=== PATIENT | male | born 1970 | race Caucasian/White ===

== ENCOUNTER 2017-09-02 20:04 | Inpatient (IN) | payer OTHER ==
[~2017-09-02] VITALS: Ht 177.8 cm; Wt 74.8 kg
[~2017-09-02 20:04] MED LIST: AUGMENTIN 875875 MG PO; BLM PO; MEDROL DOSEPAK1 PAC PO; PERCOCET 325 MG1 TA2 PO
[2017-09-02 20:56] LABS: ABSOLUTE BASOPHIL COUNT 0.1 /CUMM (0.0-0.2); ABSOLUTE EOSINOPHIL COUNT 0 /CUMM (0.0-0.7); ABSOLUTE GRANULOCYTE CT 13.6 /CUMM (1.4-6.5); ABSOLUTE LYMPH COUNT 1.4 /CUMM (1.2-3.4); ABSOLUTE MONOCYTE COUNT 2.4 /CUMM (0.10-0.60); BASOPHIL % 0.5 % (0.0-2.0); EOSINOPHIL % 0 % (0-5); GRANULOCYTE % 77.8 % (42.2-75.2); HEMATOCRIT 44.5 % (42-52); MEAN CORPUSCULAR HGB 31.8 PG (27.0-31.0); MEAN CORPUSCULAR HGB CONC 33.9 G/DL (33.0-37.0); MEAN CORPUSCULAR VOLUME 93.8 FL (80.0-94.0); MEAN PLATELET VOLUME 7.7 FL (7.4-10.4); PLATELET COUNT 342 /CUMM (130-400); RBC DISTRIBUTION WIDTH 13.4 % (11.5-14.5); RED BLOOD CELL CT 4.74 /CUMM (4.70-6.10); WHITE BLOOD CELL COUNT 17.5 /CUMM (4.8-10.8)
--- NOTE | 2017-09-02 21:52 | ED GI/GU/ABDOMINAL COMPLAINT ---
History of Present Illness General Chief Complaint: Abdominal Pain/Flank Pain Stated Complaint: ABD PAIN X 4 DAYS PER PT Source: patient, family, old records Exam Limitations: no limitations Vital Signs & Intake/Output Vital Signs & Intake/Output Vital Signs Date Time Temp Pulse Resp B/P B/P Pulse O2 O2 Flow FiO2 Mean Ox Delivery Rate 09/02 2010 98.4 90 18 152/88 99 Room Air ED Intake and Output 09/03 0000 09/02 1200 Intake Total Output Total Balance Patient 160 lb Weight Allergies Coded Allergies: NO KNOWN ALLERGIES (09/22/14) Reconcile Medications Amoxicillin/Clavulanate Potass (Amox-Clav 875-125 MG Tablet) 875 MG-125 MG TABLET 1 TAB PO BID INFECTION LIDO/MAAL/CARLOS A (Magic Mouthwash) (Lido-Visc2% 30ML/[id number],MAALOX 120ml) 270 ML JEREL 10 ML PO TID PRN Mouth Pain Methylprednisolone. (Medrol) 4 MG TAB.DS.PK 1 PAC PO AD INFLAMMATION OXYCODONE HCL/ACETAMINOPHEN (Percocet 5-325 MG Tablet) 325 MG/5 MG TAB 1-2 TAB PO Q4P PRN PAIN SCALE 1-4 Triage Note: 47M HX DIVERTICULITIS WITH EXCRUTIATING PAIN X4 HOURS. REPORTS PAIN IS SEVERE TO BILAT LOWER QUADRANTS. DENIES BACK PAIN, DENIES DYSURIA OR HEMATURIA. AFEBRILE. N/V/D ON SATURDAY BUT NONE TODAY. DENIES FEVERS/CHILLS. POOR PO INTAKE. HX APPY. PAIN 7/10 AT BEST AND 9/10 AT WORST. IV EST AND LABS DRAWN AND SENT FROM [facility] (BLUE SSTX2 LAV LONG PINK) AND IV EST FOR CT. MEDICATED WITH MORPHINE PER [facility] Triage Nurses Notes Reviewed? yes HPI: On Saturday evening patient began to feel slight discomfort in his left lower quadrant. Patient thought he was getting the GI probe. By night he began having nausea vomiting and diarrhea. Saturday he still felt slightly nauseous but there was no more vomiting or diarrhea however the crampy pain has steadily increased throughout the weekend. Currently the pain is radiating to his right lower quadrant as well. The pain has been increasing up to 9 out of 10. Patient does have a history of diverticulitis with microperforation. Patient denies any fevers or chills. Patient comes in for evaluation. There are no aggravating or mitigating factors. Past History Travel History Traveled to [place] past 21 day No Medical History Any Pertinent Medical History? see below for history Neurological: NONE EENT: NONE Cardiovascular: NONE Respiratory: NONE Gastrointestinal: diverticulitis, OBSTRUCTION W/PERF. 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 No Review of Systems Review of Systems Constitutional: Reports: no symptoms. EENTM: Reports: no symptoms. Respiratory: Reports: no symptoms. Cardiovascular: Reports: no symptoms. GI: Reports: see HPI, abdominal pain, diarrhea, nausea, vomiting. Genitourinary: Reports: no symptoms. Musculoskeletal: Reports: no symptoms. Skin: Reports: no symptoms. Neurological/Psychological: Reports: no symptoms. Hematologic/Endocrine: Reports: no symptoms. Immunologic/Allergic: Reports: no symptoms. All Other Systems: Reviewed and Negative Physical Exam Physical Exam General Appearance: well developed/nourished, alert, awake, anxious, moderate distress Head: atraumatic, normal appearance Eyes: Bilateral: PERRL, EOMI. Ears, Nose, Throat, Mouth: hearing grossly normal, DRY MUCOSA Neck: normal inspection, supple, full range of motion Respiratory: normal breath sounds, chest non-tender, no respiratory distress, lungs clear Cardiovascular: regular rate/rhythm, normal peripheral pulses Gastrointestinal: normal bowel sounds, soft, guarding, rebound, tenderness (LLQ) Back: normal inspection, normal range of motion Extremities: normal range of motion Neurologic/Psych: no motor/sensory deficits, awake, alert, oriented x 3, normal mood/affect Skin: intact, normal color, warm/dry Core Measures ACS in differential dx? No Sepsis Present: No Sepsis Focused Exam Completed? No Progress Differential Diagnosis: bowel obstruction, diverticulitis, ischemic bowel, inflamm bowel dis, pancreatitis, peptic ulcer, PUD/GERD Plan of Care: Orders Procedure Date/time Status ED Holding Orders 09/03 B Active Code Status 09/03 0101 Active Admit to inpatient 09/03 0100 Active LIPASE 09/02 2013 Complete LACTIC ACID 09/02 2013 Complete COMPREHENSIVE METABOLIC PANEL 09/02 2013 Complete CBC WITHOUT DIFFERENTIAL 09/02 2013 Complete Laboratory Tests 09/02/17 2314: Lactic Acid Cancelled 09/02/17 2022: Anion Gap 21 H, Estimated GFR > 60, BUN/Creatinine Ratio 21.0, Glucose 97, Lactic Acid 1.2, Calcium 10.1, Total Bilirubin 1.3, AST 32, ALT 60, Alkaline Phosphatase 99, Total Protein 8.1, Albumin 4.9, Globulin 3.2, Albumin/Globulin Ratio 1.5, Lipase 88, CBC w Diff NO MAN DIFF REQ, RBC 4.74, MCV 93.8, MCH 31.8 H, MCHC 33.9, RDW 13.4, MPV 7.7, Gran % 77.8 H, Lymphocytes % 8.2 L, Monocytes % 13.5 H, Eosinophils % 0, Basophils % 0.5, Absolute Granulocytes 13.6 H, Absolute Lymphocytes 1.4, Absolute Monocytes 2.4 H, Absolute Eosinophils 0, Absolute Basophils 0.1 Diagnostic Imaging: Viewed by Me: CT Scan. Discussed w/RAD: CT Scan. Radiology Impression: PATIENT: EDMOND VILLAR PRESENT AGE: 47 PATIENT ACCOUNT NO: [id number] : 71 LOCATION: [facility] ORDERING PHYSICIAN: Estella PALOMARES SERVICE DATE: 09/02/17 EXAM TYPE: CAT - CT ABD & PELVIS W IV CONTRAST EXAMINATION: CT ABDOMEN AND PELVIS WITH CONTRAST CLINICAL INFORMATION: Lower abdominal pain. COMPARISON: 11/19/2014 TECHNIQUE: Multidetector volumetric imaging was performed of the abdomen and pelvis following IV administration of 95 mL of Optiray 320 intravenous contrast. Sagittal and coronal reformatted images were obtained on the technologist's workstation. DLP: 290 mGy-cm FINDINGS: LUNG BASES: The visualized lung bases are unremarkable. LIVER, GALLBLADDER, AND BILIARY TREE: The liver is normal in size, shape, and attenuation. No focal hepatic lesion or biliary ductal dilatation is present. The gallbladder is unremarkable with no evidence of radiopaque gallstones, gallbladder wall thickening, or obvious pericholecystic inflammatory changes. PANCREAS: Unremarkable. SPLEEN: Unremarkable. ADRENAL GLANDS: Unremarkable. KIDNEYS AND URETERS: The kidneys are normal in size, shape, and attenuation. No hydronephrosis, hydroureter, or calculi seen. No perinephric stranding. BLADDER: Unremarkable. GASTROINTESTINAL TRACT: Within the central aspect of the lower abdomen there appears to be an extraluminal collection/ abscess with air-fluid level measuring 3.8 x 4.4 x 4.6 cm. This involves the posterior wall of a dilated and thick-walled small bowel loop. This loop of small bowel courses posteroinferiorly, where the collection erodes into the anterior wall, potentially an enteroenteric fistula. In addition, along the left lateral margin the junction of the sigmoid and descending colon is tethered, contiguous with the collection, which also appears to be eroding the wall of the colon on axial image 54 and an enterocolic fistula cannot be excluded. Potentially, this is a diverticular abscess from the sigmoid, eroding into adjacent loops of small bowel. There are dilated loops of fluid and air-filled small bowel in the mid-abdomen. There is a small amount of free fluid in the pelvis. ABDOMINAL WALL: No significant hernia is appreciated. LYMPH NODES: Normal. VASCULAR: Unremarkable. PELVIC VISCERA: The uterus is absent. OSSEOUS STRUCTURES: Unremarkable. IMPRESSION: There is a 3.8 x 4.4 x 4.6 cm abscess in the central lower abdomen involving 2 contiguous portions of a loop of small bowel which are markedly thick-walled. This collection abuts and may erode the adjacent sigmoid colon. Complication of a sigmoid diverticulitis/diverticular abscess is the suspected etiology with possible enterocolic and enteroenteric fistulous communications. Portions of proximal small bowel loops within the mid and upper abdomen are dilated. DICTATED BY: Jorge Luis Galdamez MD DATE/TIME DICTATED:09/02/172221 GUITAR INSTRUCTOR:MATA DATE/TIME TRANSCRIBED:2221 CONFIDENTIAL, DO NOT COPY WITHOUT APPROPRIATE AUTHORIZATION. < Electronically signed in Other Vendor System> SIGNED BY: Jorge Luis Galdamez MD 09/02/17 4630 Initial ED EKG: none Departure Departure Disposition: STILL A PATIENT Condition: Fair Clinical Impression Primary Impression: Diverticular disease of intestine with perforation and abscess Referrals: Peña Bartholomew MD (PCP/Family) Departure Forms: Customer Survey General Discharge Information Admission Note Spoke With: Shan Miles DO Documentation of Exam: Documentation of any treatments & extenuating circumstances including Concerns Regarding Discharge (functional status, medication knowledge or non-compliance, living conditions, etc.) that warrant an admission rather than observation: [NPO , IV FLUIDS, IV ABX, IR DRAINAGE, MAY REQUIRE SURGICAL INTERVENTION]
--- NOTE | 2017-09-02 22:47 | CT SCAN REPORT ---
EXAMINATION: CT ABDOMEN AND PELVIS WITH CONTRAST CLINICAL INFORMATION: Lower abdominal pain. COMPARISON: 11/19/2014 TECHNIQUE: Multidetector volumetric imaging was performed of the abdomen and pelvis following IV administration of 95 mL of Optiray 320 intravenous contrast. Sagittal and coronal reformatted images were obtained on the technologist's workstation. DLP: 290 mGy-cm FINDINGS: LUNG BASES: The visualized lung bases are unremarkable. LIVER, GALLBLADDER, AND BILIARY TREE: The liver is normal in size, shape, and attenuation. No focal hepatic lesion or biliary ductal dilatation is present. The gallbladder is unremarkable with no evidence of radiopaque gallstones, gallbladder wall thickening, or obvious pericholecystic inflammatory changes. PANCREAS: Unremarkable. SPLEEN: Unremarkable. ADRENAL GLANDS: Unremarkable. KIDNEYS AND URETERS: The kidneys are normal in size, shape, and attenuation. No hydronephrosis, hydroureter, or calculi seen. No perinephric stranding. BLADDER: Unremarkable. GASTROINTESTINAL TRACT: Within the central aspect of the lower abdomen there appears to be an extraluminal collection/abscess with air-fluid level measuring 3.8 x 4.4 x 4.6 cm. This involves the posterior wall of a dilated and thick-walled small bowel loop. This loop of small bowel courses posteroinferiorly, where the collection erodes into the anterior wall, potentially an enteroenteric fistula. In addition, along the left lateral margin the junction of the sigmoid and descending colon is tethered, contiguous with the collection, which also appears to be eroding the wall of the colon on axial image 54 and an enterocolic fistula cannot be excluded. Potentially, this is a diverticular abscess from the sigmoid, eroding into adjacent loops of small bowel. There are dilated loops of fluid and air-filled small bowel in the mid-abdomen. There is a small amount of free fluid in the pelvis. ABDOMINAL WALL: No significant hernia is appreciated. LYMPH NODES: Normal. VASCULAR: Unremarkable. PELVIC VISCERA: The uterus is absent. OSSEOUS STRUCTURES: Unremarkable. IMPRESSION: There is a 3.8 x 4.4 x 4.6 cm abscess in the central lower abdomen involving 2 contiguous portions of a loop of small bowel which are markedly thick-walled. This collection abuts and may erode the adjacent sigmoid colon. Complication of a sigmoid diverticulitis/diverticular abscess is the suspected etiology with possible enterocolic and enteroenteric fistulous communications. Portions of proximal small bowel loops within the mid and upper abdomen are dilated.
--- NOTE | 2017-09-02 23:26 | History & Physical Pre-Op ---
Starr Argueta 09/02/172: General Information and HPI History of Present Illness: 47yoM presents to ED c/o abdominal pain x5 days, worsening. +n/v 3 days ago, now resolved. no fevers/chills. +flatus. no cp/sob. No appetite. Hx sigmoid divertic abscess 3 yrs ago, resolved with antibiotics. Denies other medical problems. Last colonoscopy 4 years ago, normal per pt. 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 History of MRSA: No History of VRE: No History of CDIFF: No Surgical History Pertinent Surgical History: appendectomy (open, 9yrs old) Past Family/Social History Psychosocial History Services at Home None ETOH Use: occasional use Illicit Drug Use: denies illicit drug use Exam & Diagnostic Data Last 24 Hrs of Vital Signs/I&O Vital Signs Date Time Temp Pulse Resp B/P B/P Pulse O2 O2 Flow FiO2 Mean Ox Delivery Rate 09/02 2010 98.4 90 18 152/88 99 Room Air Physical Exam: gen- nad card-s1s2 rrr pulm- ctab abd- softly distended, ttp llq/suprapubic, no r/g ext- calves soft nt Last 24 Hrs of Labs/Keith: Laboratory Tests 09/02/174: Lactic Acid Cancelled 09/02/172021: Anion Gap 21 H, Estimated GFR > 60, BUN/Creatinine Ratio 21.0, Glucose 97, Lactic Acid 1.2, Calcium 10.1, Total Bilirubin 1.3, AST 32, ALT 60, Alkaline Phosphatase 99, Total Protein 8.1, Albumin 4.9, Globulin 3.2, Albumin/Globulin Ratio 1.5, Lipase 88, CBC w Diff NO MAN DIFF REQ, RBC 4.74, MCV 93.8, MCH 31.8 H, MCHC 33.9, RDW 13.4, MPV 7.7, Gran % 77.8 H, Lymphocytes % 8.2 L, Monocytes % 13.5 H, Eosinophils % 0, Basophils % 0.5, Absolute Granulocytes 13.6 H, Absolute Lymphocytes 1.4, Absolute Monocytes 2.4 H, Absolute Eosinophils 0, Absolute Basophils 0.1 Diagnostic Data Other Results SERVICE DATE: 09/02/17 EXAM TYPE: CAT - CT ABD & PELVIS W IV CONTRAST EXAMINATION: CT ABDOMEN AND PELVIS WITH CONTRAST CLINICAL INFORMATION: Lower abdominal pain. COMPARISON: 11/19/2014 TECHNIQUE: Multidetector volumetric imaging was performed of the abdomen and pelvis following IV administration of 95 mL of Optiray 320 intravenous contrast. Sagittal and coronal reformatted images were obtained on the technologist's workstation. DLP: 290 mGy-cm FINDINGS: LUNG BASES: The visualized lung bases are unremarkable. LIVER, GALLBLADDER, AND BILIARY TREE: The liver is normal in size, shape, and attenuation. No focal hepatic lesion or biliary ductal dilatation is present. The gallbladder is unremarkable with no evidence of radiopaque gallstones, gallbladder wall thickening, or obvious pericholecystic inflammatory changes. PANCREAS: Unremarkable. SPLEEN: Unremarkable. ADRENAL GLANDS: Unremarkable. KIDNEYS AND URETERS: The kidneys are normal in size, shape, and attenuation. No hydronephrosis, hydroureter, or calculi seen. No perinephric stranding. BLADDER: Unremarkable. GASTROINTESTINAL TRACT: Within the central aspect of the lower abdomen there appears to be an extraluminal collection/abscess with air-fluid level measuring 3.8 x 4.4 x 4.6 cm. This involves the posterior wall of a dilated and thick-walled small bowel loop. This loop of small bowel courses posteroinferiorly, where the collection erodes into the anterior wall, potentially an enteroenteric fistula. In addition, along the left lateral margin the junction of the sigmoid and descending colon is tethered, contiguous with the collection, which also appears to be eroding the wall of the colon on axial image 54 and an enterocolic fistula cannot be excluded. Potentially, this is a diverticular abscess from the sigmoid, eroding into adjacent loops of small bowel. There are dilated loops of fluid and air-filled small bowel in the mid-abdomen. There is a small amount of free fluid in the pelvis. ABDOMINAL WALL: No significant hernia is appreciated. LYMPH NODES: Normal. VASCULAR: Unremarkable. PELVIC VISCERA: The uterus is absent. OSSEOUS STRUCTURES: Unremarkable. IMPRESSION: There is a 3.8 x 4.4 x 4.6 cm abscess in the central lower abdomen involving 2 contiguous portions of a loop of small bowel which are markedly thick-walled. This collection abuts and may erode the adjacent sigmoid colon. Complication of a sigmoid diverticulitis/diverticular abscess is the suspected etiology with possible enterocolic and enteroenteric fistulous communications. Portions of proximal small bowel loops within the mid and upper abdomen are dilated. 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 P- NPO IVF cefepime/flagyl am labs will consult IR for possible perc drainage in am alps, order hep sq after ir procedure Pt seen with Dr. Miles As Ranked By This Provider Problem List: 1. Diverticular disease of intestine with perforation and abscess Rosalino BARAJAS,Jens Nolen 09/03/17 1509: Attending MD Review Statement Attending Statement Attending MD Statement: examined this patient, reviewed images Attending Assessment/Plan: 47yo male known to me with recurrent sigmoid diverticular abscess with partial sbo. plan medical management with bowel rest and IV abx.
--- NOTE | 2017-09-03 01:33 | Admission Core Measures ---
Acute Coronary Syndrome (CM) ACS Core Measures Acute Coronary Syndrome Diagnosis No Congestive Heart Failure (NEW) CHF Core Measures Congestive Heart Failure Diagnosis No Cerebrovascular Accident (NEW) CVA Core Measures CVA/TIA Diagnosis No Venous Thromboembolism VTE Core [place] (View Protocol) VTE Risk Factors Acute Medical Illness No Mechanical VTE Prophylaxis d/t N/A MechProphylax Ordered No VTE Pharm Prophylaxis d/t Surgical Contraindication Problem List As ranked by this Provider includes Assessment & Plan 1. Diverticular disease of intestine with perforation and abscess HOME MEDS Home Med List No Known Home Medications
[2017-09-03 03:13] VITALS: BP 140/82
[2017-09-03 08:27] LABS: ABSOLUTE EOSINOPHIL COUNT 0 /CUMM (0.0-0.7); ABSOLUTE GRANULOCYTE CT 12.3 /CUMM (1.4-6.5); RBC DISTRIBUTION WIDTH 13.1 % (11.5-14.5); WHITE BLOOD CELL COUNT 16.5 /CUMM (4.8-10.8)
[2017-09-03 08:55] LABS: ABSOLUTE BASOPHIL COUNT 0 /CUMM (0.0-0.2); ABSOLUTE LYMPH COUNT 1.7 /CUMM (1.2-3.4); ABSOLUTE MONOCYTE COUNT 2.5 /CUMM (0.10-0.60); BASOPHIL % 0.2 % (0.0-2.0); EOSINOPHIL % 0.2 % (0-5); GRANULOCYTE % 74.5 % (42.2-75.2); MEAN CORPUSCULAR VOLUME 94.2 FL (80.0-94.0); PLATELET COUNT 247 /CUMM (130-400)
[2017-09-03 08:58] LABS: HEMATOCRIT 37.7 % (42-52)
[2017-09-03 09:22] VITALS: BP 130/72
--- NOTE | 2017-09-03 10:38 | PN- General Surgery ---
See Addendum Subjective Subjective: Patient reports abdominal pain in his lower quadrants, which waxes and wanes in natures, denies f/c/n/v. Offers no other complaints. Objective Vital Signs and I&Os Vital Signs Date Time Temp Pulse Resp B/P B/P Pulse O2 O2 Flow FiO2 Mean Ox Delivery Rate 09/03 921 99.2 92 18 130/72 98 Room Air 09/03 0313 99.1 108 20 140/82 98 Room Air 09/03 0203 98.0 96 20 160/72 98 Room Air 09/03 0000 98 Room Air 09/02 2010 98.4 90 18 152/88 99 Room Air Intake & Output 09/03 1600 09/03 0800 09/03 0000 09/02 1600 09/02 0800 09/02 0000 Intake Total 750 Output Total Balance 750 Intake, IV 750 Patient 165 lb 160 lb Weight Weight Reported by Patient Measurement Method Physical Exam: Gen - resting comfortably awake an alert in NAD Cardiac - S1S2 noted Lungs - CTAB Abd - softly distended, faint bs, mildly tender to palpation in lower quadrants and suprapubic region, no signs of peritonitis Ext - no edema or calf tenderness Current Medications: Current Medications Sig/Jhonatan Start time Last Medication Dose Route Stop Time Status Admin Ampicillin Sodium/ 0 .STK-MED ONE 09/02 2319 DC Sulbactam Sodium .ROUTE Ampicillin Sodium/ 3,000 MG ONCE ONE 09/02 2300 DC 09/02 Sulbactam Sodium IV 09/02 2329 2318 Sodium Chloride 100 ML Ceftriaxone Sodium 1,000 MG Q24H 09/04 0130 DC IV Ceftriaxone Sodium 2,000 MG Q24H 09/04 0130 AC IV Ceftriaxone Sodium 1,000 MG ONCE ONE 09/03 1015 DC IV 09/03 1016 Ceftriaxone Sodium 0 .STK-MED ONE 09/03 0210 DC .ROUTE Ceftriaxone Sodium 0 .STK-MED ONE 09/03 0150 DC .ROUTE Ceftriaxone Sodium 1,000 MG DAILY 09/03 0130 DC 09/03 IV 0140 Dextrose/Sodium 1,000 ML .Q8H 09/03 0130 AC 09/03 Chloride IV 0219 Diphenhydramine HCl 25 MG ONCE ONE 09/03 0300 DC 09/03 IV 09/03 0301 0307 Heparin Sodium 5,000 UNIT Q8 09/03 1400 UNVr (Porcine) SC Metronidazole 500 MG Q8H 09/03 1000 AC 09/03 N/A 1 UNIT IV 0900 Metronidazole 500 MG IQ8 09/03 0145 DC 09/03 N/A 1 UNIT IV 0208 Morphine Sulfate 0 .STK-MED ONE 09/03 0216 DC .ROUTE Morphine Sulfate 2 MG Q3P PRN 09/03 0145 AC 09/03 IV 0901 Morphine Sulfate 4 MG Q3P PRN 09/03 0145 AC IV Morphine Sulfate 0 .STK-MED ONE 09/03 0003 DC .ROUTE Morphine Sulfate 4 MG ONCE ONE 09/02 2345 DC 09/02 IV 09/02 234 2359 Morphine Sulfate 0 .STK-MED ONE 09/02 2208 DC .ROUTE Morphine Sulfate 4 MG ONCE ONE 09/02 2199 DC 09/02 IV 09/02 2200 221 Morphine Sulfate 0 .STK-MED ONE 09/02 2030 DC .ROUTE Morphine Sulfate 4 MG ONCE ONE 09/02 2030 DC 09/02 IV 09/02 Ondansetron HCl 4 MG Q6P PRN 09/03 0130 AC IV Pantoprazole Sodium 40 MG DAILY 09/03 1113 AC IV Sodium Chloride 1,000 ML BOLUS ONE 09/02 2300 DC 09/02 IV 09/02 235 2318 Sodium Chloride 1,000 ML BOLUS ONE 09/02 2199 DC 09/02 IV 09/02 225 2214 Results Last 48 Hours of Labs: Laboratory Tests 09/03 09/03 0633 0130 Chemistry Sodium (137 - 145 mmol/L) 138 Potassium (3.5 - 5.1 mmol/L) 3.6 Chloride (98 - 107 mmol/L) 106 Carbon Dioxide (22 - 30 mmol/L) 19 L Anion Gap (5 - 16) 13 BUN (9 - 20 mg/dL) 15 Creatinine (0.7 - 1.2 mg/dL) 0.7 Estimated GFR (>60 ml/min) > 60 BUN/Creatinine Ratio (7 - 25 %) 21.4 Hematology CBC w Diff MAN DIFF ORDERED WBC (4.8 - 10.8 /CUMM) 16.5 H RBC (4.70 - 6.10 /CUMM) 4.00 L Hgb (14.0 - 18.0 G/DL) 12.8 L Hct (42 - 52 %) 37.7 L MCV (80.0 - 94.0 FL) 94.2 H MCH (27.0 - 31.0 PG) 32.0 H MCHC (33.0 - 37.0 G/DL) 34.0 RDW (11.5 - 14.5 %) 13.1 Plt Count (130 - 400 /CUMM) 247 MPV (7.4 - 10.4 FL) 8.0 Gran % (42.2 - 75.2 %) 74.5 Lymphocytes % (20.5 - 51.1 %) 10.2 L Monocytes % (1.7 - 9.3 %) 14.9 H Eosinophils % (0 - 5 %) 0.2 Basophils % (0.0 - 2.0 %) 0.2 Absolute Granulocytes (1.4 - 6.5 /CUMM) 12.3 H Segmented Neutrophils (42.2 - 75.2 %) 66 Band Neutrophils (0.0 - 5.0 %) 14 H Absolute Lymphocytes (1.2 - 3.4 /CUMM) 1.7 Lymphocytes (20.5 - 51.1 %) 8 L Monocytes (1.7 - 9.3 %) 12 H Absolute Monocytes (0.10 - 0.60 /CUMM) 2.5 H Absolute Eosinophils (0.0 - 0.7 /CUMM) 0 Absolute Basophils (0.0 - 0.2 /CUMM) 0 Platelet Estimate (ADEQUATE) ADEQUATE Anisocytosis 1+ Urines Urinalysis LIGHT H Urine Color (YEL,AMB,STR) YEL Urine Clarity (CLEAR) CLEAR Urine pH (5.0 - 8.0) 6.0 Ur Specific [place] (1.001 - 1.035) 1.020 Urine Protein (NEG,<30 MG/DL) 30 H Urine Ketones (NEG) >=80 Urine Nitrite (NEG) NEG Urine Bilirubin (NEG) NEG@ICTO Urine Urobilinogen (0.1 - 1.0 EU/dl) 1.0 Ur Leukocyte Esterase (NEG) NEG Ur Microscopic SEDIMENT EXAMINED Urine WBC (0 - 2 /HPF) 3-5 H Ur Epithelial Cells (NONE,FEW) FEW Granular Casts (NONE /LPF) 3-5 H Urine Mucus (FEW,NONE) FEW Urine Hemoglobin (NEG) NEG Urine Glucose (N MG/DL) NEG 09/02 Chemistry Sodium (137 - 145 mmol/L) 136 L Potassium (3.5 - 5.1 mmol/L) 4.2 Chloride (98 - 107 mmol/L) 93 L Carbon Dioxide (22 - 30 mmol/L) 22 Anion Gap (5 - 16) 21 H BUN (9 - 20 mg/dL) 21 H Creatinine (0.7 - 1.2 mg/dL) 1.0 Estimated GFR (>60 ml/min) > 60 BUN/Creatinine Ratio (7 - 25 %) 21.0 Glucose (65 - 99 mg/dL) 97 Lactic Acid (0.7 - 2.1 mmol/L) Cancelled 1.2 Calcium (8.4 - 10.2 mg/dL) 10.1 Total Bilirubin (0.2 - 1.3 mg/dL) 1.3 AST (17 - 59 U/L) 32 ALT (21 - 72 U/L) 60 Alkaline Phosphatase (< 127 U/L) 99 Total Protein (6.3 - 8.2 g/dL) 8.1 Albumin (3.5 - 5.0 g/dL) 4.9 Globulin (1.9 - 4.2 gm/dL) 3.2 Albumin/Globulin Ratio (1.1 - 2.2 %) 1.5 Lipase (23 - 300 U/L) 88 Hematology CBC w Diff NO MAN DIFF REQ WBC (4.8 - 10.8 /CUMM) 17.5 H RBC (4.70 - 6.10 /CUMM) 4.74 Hgb (14.0 - 18.0 G/DL) 15.1 Hct (42 - 52 %) 44.5 MCV (80.0 - 94.0 FL) 93.8 MCH (27.0 - 31.0 PG) 31.8 H MCHC (33.0 - 37.0 G/DL) 33.9 RDW (11.5 - 14.5 %) 13.4 Plt Count (130 - 400 /CUMM) 342 MPV (7.4 - 10.4 FL) 7.7 Gran % (42.2 - 75.2 %) 77.8 H Lymphocytes % (20.5 - 51.1 %) 8.2 L Monocytes % (1.7 - 9.3 %) 13.5 H Eosinophils % (0 - 5 %) 0 Basophils % (0.0 - 2.0 %) 0.5 Absolute Granulocytes (1.4 - 6.5 /CUMM) 13.6 H Absolute Lymphocytes (1.2 - 3.4 /CUMM) 1.4 Absolute Monocytes (0.10 - 0.60 /CUMM) 2.4 H Absolute Eosinophils (0.0 - 0.7 /CUMM) 0 Absolute Basophils (0.0 - 0.2 /CUMM) 0.1 Assessment/Plan Assessment/Plan 47 M with a h/o perforated diverticulitits admitted with 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 Jerry, managing conservatively, unamendable to IR guided drainage Keep NPO on IVF IV pain regimen prn IV abx - rocephin 2 g qd, flagyl 500 tid GI ppx on board Alps, start hsq Monitor with serial abdominal exams May require surgical intervention if condition worsens D/w Dr. Miles who is transferring care over to Dr. Jerry Core Measures Venous Thromboembolism VTE Risk Factors Acute Medical Illness No Mechanical VTE Prophylaxis d/t N/A MechProphylax Ordered No VTE Pharm Prophylaxis d/t Surgical Contraindication
[2017-09-03 14:17] VITALS: BP 130/70
[2017-09-03 22:32] VITALS: BP 120/74
[2017-09-04 07:23] VITALS: BP 106/68
--- NOTE | 2017-09-04 07:59 | PN- General Surgery ---
See Addendum Subjective Subjective: OOB, dressed. denies abd pain, though did just get pain meds. has mild pain without meds. overall feeling much better. no n/v, no cp/sob, minimal flatus, no bm. no fever/chills. not hungry Objective Vital Signs and I&Os Vital Signs Date Time Temp Pulse Resp B/P B/P Pulse O2 O2 Flow FiO2 Mean Ox Delivery Rate 09/04 0723 99.5 96 20 106/68 96 09/03 2232 100.3 97 20 120/74 95 Room Air 09/03 1417 98.1 96 18 130/70 98 Room Air 09/03 0922 99.2 92 18 130/72 98 Room Air Intake & Output 09/04 1600 09/04 0800 09/04 0000 09/03 1600 09/03 0800 09/03 0000 Intake Total 801 216 9715 750 Output Total Balance 587 483 9643 750 Intake, IV 504 964 5331 750 Intake, Oral 0 0 Number 0 Bowel Movements Patient 165 lb 160 lb Weight Weight Reported by Patient Measurement Method no urine output recorded Physical Exam: GEN- NAD CARD- s1s2 RRR PULM- CTAB ABD- softly distended, nt, +bs EXT- calves soft nt Results Last 48 Hours of Labs: Laboratory Tests 09/04 09/03 0657 0633 Chemistry Sodium (137 - 145 mmol/L) Pending 138 Potassium (3.5 - 5.1 mmol/L) Pending 3.6 Chloride (98 - 107 mmol/L) Pending 106 Carbon Dioxide (22 - 30 mmol/L) Pending 19 L Anion Gap (5 - 16) Pending 13 BUN (9 - 20 mg/dL) Pending 15 Creatinine (0.7 - 1.2 mg/dL) Pending 0.7 Estimated GFR (>60 ml/min) > 60 BUN/Creatinine Ratio (7 - 25 %) Pending 21.4 Hematology CBC w Diff MAN DIFF ORDERED WBC (4.8 - 10.8 /CUMM) 16.5 H RBC (4.70 - 6.10 /CUMM) 4.00 L Hgb (14.0 - 18.0 G/DL) 12.8 L Hct (42 - 52 %) 37.7 L MCV (80.0 - 94.0 FL) 94.2 H MCH (27.0 - 31.0 PG) 32.0 H MCHC (33.0 - 37.0 G/DL) 34.0 RDW (11.5 - 14.5 %) 13.1 Plt Count (130 - 400 /CUMM) 247 MPV (7.4 - 10.4 FL) 8.0 Gran % (42.2 - 75.2 %) 74.5 Lymphocytes % (20.5 - 51.1 %) 10.2 L Monocytes % (1.7 - 9.3 %) 14.9 H Eosinophils % (0 - 5 %) 0.2 Basophils % (0.0 - 2.0 %) 0.2 Absolute Granulocytes (1.4 - 6.5 /CUMM) 12.3 H Segmented Neutrophils (42.2 - 75.2 %) 66 Band Neutrophils (0.0 - 5.0 %) 14 H Absolute Lymphocytes (1.2 - 3.4 /CUMM) 1.7 Lymphocytes (20.5 - 51.1 %) 8 L Monocytes (1.7 - 9.3 %) 12 H Absolute Monocytes (0.10 - 0.60 /CUMM) 2.5 H Absolute Eosinophils (0.0 - 0.7 /CUMM) 0 Absolute Basophils (0.0 - 0.2 /CUMM) 0 Platelet Estimate (ADEQUATE) ADEQUATE Anisocytosis 1+ 09/03 09/02 0130 2314 Chemistry Lactic Acid Cancelled Urines Urinalysis LIGHT H Urine Color (YEL,AMB,STR) YEL Urine Clarity (CLEAR) CLEAR Urine pH (5.0 - 8.0) 6.0 Ur Specific [place] (1.001 - 1.035) 1.020 Urine Protein (NEG,<30 MG/DL) 30 H Urine Ketones (NEG) >=80 Urine Nitrite (NEG) NEG Urine Bilirubin (NEG) NEG@ICTO Urine Urobilinogen (0.1 - 1.0 EU/dl) 1.0 Ur Leukocyte Esterase (NEG) NEG Ur Microscopic SEDIMENT EXAMINED Urine WBC (0 - 2 /HPF) 3-5 H Ur Epithelial Cells (NONE,FEW) FEW Granular Casts (NONE /LPF) 3-5 H Urine Mucus (FEW,NONE) FEW Urine Hemoglobin (NEG) NEG Urine Glucose (N MG/DL) NEG 09/02 2021 Chemistry Sodium (137 - 145 mmol/L) 136 L Potassium (3.5 - 5.1 mmol/L) 4.2 Chloride (98 - 107 mmol/L) 93 L Carbon Dioxide (22 - 30 mmol/L) 22 Anion Gap (5 - 16) 21 H BUN (9 - 20 mg/dL) 21 H Creatinine (0.7 - 1.2 mg/dL) 1.0 Estimated GFR (>60 ml/min) > 60 BUN/Creatinine Ratio (7 - 25 %) 21.0 Glucose (65 - 99 mg/dL) 97 Lactic Acid (0.7 - 2.1 mmol/L) 1.2 Calcium (8.4 - 10.2 mg/dL) 10.1 Total Bilirubin (0.2 - 1.3 mg/dL) 1.3 AST (17 - 59 U/L) 32 ALT (21 - 72 U/L) 60 Alkaline Phosphatase (< 127 U/L) 99 Total Protein (6.3 - 8.2 g/dL) 8.1 Albumin (3.5 - 5.0 g/dL) 4.9 Globulin (1.9 - 4.2 gm/dL) 3.2 Albumin/Globulin Ratio (1.1 - 2.2 %) 1.5 Lipase (23 - 300 U/L) 88 Hematology CBC w Diff NO MAN DIFF REQ WBC (4.8 - 10.8 /CUMM) 17.5 H RBC (4.70 - 6.10 /CUMM) 4.74 Hgb (14.0 - 18.0 G/DL) 15.1 Hct (42 - 52 %) 44.5 MCV (80.0 - 94.0 FL) 93.8 MCH (27.0 - 31.0 PG) 31.8 H MCHC (33.0 - 37.0 G/DL) 33.9 RDW (11.5 - 14.5 %) 13.4 Plt Count (130 - 400 /CUMM) 342 MPV (7.4 - 10.4 FL) 7.7 Gran % (42.2 - 75.2 %) 77.8 H Lymphocytes % (20.5 - 51.1 %) 8.2 L Monocytes % (1.7 - 9.3 %) 13.5 H Eosinophils % (0 - 5 %) 0 Basophils % (0.0 - 2.0 %) 0.5 Absolute Granulocytes (1.4 - 6.5 /CUMM) 13.6 H Absolute Lymphocytes (1.2 - 3.4 /CUMM) 1.4 Absolute Monocytes (0.10 - 0.60 /CUMM) 2.4 H Absolute Eosinophils (0.0 - 0.7 /CUMM) 0 Absolute Basophils (0.0 - 0.2 /CUMM) 0.1 Assessment/Plan Assessment/Plan A- 47M HD2 with sig diverticulitis with asbcess, not amenable to IR drainage, on iv abx, clinically improving. P- cont iv abx dvt ppx oob, ambulate ?try clrs later. nop, ivf for now. will dw attending Core Measures Venous Thromboembolism VTE Risk Factors Acute Medical Illness No Mechanical VTE Prophylaxis d/t N/A MechProphylax Ordered No VTE Pharm Prophylaxis d/t Surgical Contraindication
[2017-09-04 09:05] LABS: ABSOLUTE BASOPHIL COUNT 0 /CUMM (0.0-0.2); ABSOLUTE EOSINOPHIL COUNT 0 /CUMM (0.0-0.7); ABSOLUTE GRANULOCYTE CT 5.4 /CUMM (1.4-6.5); ABSOLUTE LYMPH COUNT 1.3 /CUMM (1.2-3.4); ABSOLUTE MONOCYTE COUNT 1.7 /CUMM (0.10-0.60); BASOPHIL % 0.2 % (0.0-2.0); EOSINOPHIL % 0.5 % (0-5); GRANULOCYTE % 63.2 % (42.2-75.2); HEMATOCRIT 33.2 % (42-52); MEAN CORPUSCULAR HGB 32.3 PG (27.0-31.0); MEAN CORPUSCULAR HGB CONC 34.1 G/DL (33.0-37.0); MEAN CORPUSCULAR VOLUME 94.6 FL (80.0-94.0); MEAN PLATELET VOLUME 7.5 FL (7.4-10.4); PLATELET COUNT 255 /CUMM (130-400); RBC DISTRIBUTION WIDTH 13.4 % (11.5-14.5); RED BLOOD CELL CT 3.51 /CUMM (4.70-6.10)
--- NOTE | 2017-09-04 10:29 | RADIOLOGY REPORT ---
EXAMINATION: XR ABDOMEN MULTIPLE VIEWS CLINICAL INDICATION: Presumptive diagnosis: Small bowel obstruction. COMPARISON: CT of the abdomen and pelvis on 09/24/2014, 10/25/2014, 11/24/2014, and 09/02/2017. (Diverticulitis in 2015). (Small bowel obstruction with interloop abscess due to sigmoid diverticulitis). TECHNIQUE: 2 views of the abdomen. FINDINGS: There is no improvement in the degree of small bowel obstruction with dilated air and fluid-filled loops of small intestine in the upper abdomen. There is no distal gas. No visible extraluminal gas is identified. No free air is seen. Lung bases are clear. Soft tissues are unremarkable. IMPRESSION: Persistent small bowel obstruction.
[2017-09-04 11:02] LABS: WHITE BLOOD CELL COUNT 8.5 /CUMM (4.8-10.8)
[2017-09-04 14:54] VITALS: BP 118/70
[2017-09-04 23:18] VITALS: BP 127/83
[2017-09-05 06:41] VITALS: BP 120/80
--- NOTE | 2017-09-05 10:20 | PN- General Surgery ---
See Addendum Subjective Subjective: Patient reports frustration that he has not passed flatus despite ambulating freqently in the halls. He reports mild abdominal pain in the lower quadrants and is adamant against having an NGT without being sedated. Denies n/v Objective Vital Signs and I&Os Vital Signs Date Time Temp Pulse Resp B/P B/P Pulse O2 O2 Flow FiO2 Mean Ox Delivery Rate 09/05 0641 98.2 92 20 120/80 93 Room Air 09/04 2318 98.7 91 18 127/83 98 Room Air 09/04 1454 97.6 88 18 118/70 95 Room Air Intake & Output 09/05 1600 09/05 0800 09/05 0000 09/04 1600 09/04 0800 09/04 0000 Intake Total 578 047 0460 500 875 Output Total 900 Balance 900 395 190 500 875 Intake, IV 350 825 5344 500 875 Intake, Oral 30 0 90 0 Number 0 0 Bowel Movements Output, Urine 900 Physical Exam: Gen - resting comfortably awake an alert in NAD Cardiac - S1S2 noted Lungs - CTAB Abd - softly distended, absent bs, nontender Ext - no edema or calf tenderness Current Medications: Current Medications Sig/Jhonatan Start time Last Medication Dose Route Stop Time Status Admin Ceftriaxone Sodium 2,000 MG Q24H 09/04 0130 AC 09/05 IV 0142 Dextrose/Sodium 1,000 ML .Q8H 09/03 0130 AC 09/05 Chloride IV 0238 Diphenhydramine HCl 25 MG Q6P PRN 09/04 0230 AC 09/04 IV 2242 Heparin Sodium 5,000 UNIT Q8 09/03 1400 AC 09/05 (Porcine) SC 0508 Metronidazole 500 MG Q8H 09/03 1000 AC 09/05 N/A 1 UNIT IV 0958 Morphine Sulfate 2 MG Q3P PRN 09/03 0145 AC 09/03 IV 0901 Morphine Sulfate 4 MG Q3P PRN 09/03 0145 AC 09/05 IV 0808 Ondansetron HCl 4 MG Q6P PRN 09/03 0130 IV Pantoprazole Sodium 40 MG DAILY 09/03 1113 09/05 IV 0958 Patient Medication 1 ED ONE ONE 09/04 1145 DC Teaching ED 09/04 1146 Results Last 48 Hours of Labs: Laboratory Tests 09/04 09/04 0926 0827 Chemistry Sodium (137 - 145 mmol/L) 144 Potassium (3.5 - 5.1 mmol/L) 3.5 Chloride (98 - 107 mmol/L) 103 Carbon Dioxide (22 - 30 mmol/L) 29 Anion Gap (5 - 16) 12 BUN (9 - 20 mg/dL) 10 Creatinine (0.7 - 1.2 mg/dL) 0.9 Estimated GFR (>60 ml/min) > 60 BUN/Creatinine Ratio (7 - 25 %) 11.1 Hematology CBC w Diff NO MAN DIFF REQ WBC (4.8 - 10.8 /CUMM) 8.5 RBC (4.70 - 6.10 /CUMM) 3.51 L Hgb (14.0 - 18.0 G/DL) 11.3 L Hct (42 - 52 %) 33.2 L MCV (80.0 - 94.0 FL) 94.6 H MCH (27.0 - 31.0 PG) 32.3 H MCHC (33.0 - 37.0 G/DL) 34.1 RDW (11.5 - 14.5 %) 13.4 Plt Count (130 - 400 /CUMM) 255 MPV (7.4 - 10.4 FL) 7.5 Gran % (42.2 - 75.2 %) 63.2 Lymphocytes % (20.5 - 51.1 %) 15.6 L Monocytes % (1.7 - 9.3 %) 20.5 H Eosinophils % (0 - 5 %) 0.5 Basophils % (0.0 - 2.0 %) 0.2 Absolute Granulocytes (1.4 - 6.5 /CUMM) 5.4 Absolute Lymphocytes (1.2 - 3.4 /CUMM) 1.3 Absolute Monocytes (0.10 - 0.60 /CUMM) 1.7 H Absolute Eosinophils (0.0 - 0.7 /CUMM) 0 Absolute Basophils (0.0 - 0.2 /CUMM) 0 Recent Imaging Studies: SERVICE DATE: 09/04/17- EXAM TYPE: RAD - [id number] VIEWS EXAMINATION: XR ABDOMEN MULTIPLE VIEWS CLINICAL INDICATION: Presumptive diagnosis: Small bowel obstruction. COMPARISON: CT of the abdomen and pelvis on 09/24/2014, 10/25/2014, 11/24/2014, and 09/02/2017. (Diverticulitis in 2015). (Small bowel obstruction with interloop abscess due to sigmoid diverticulitis). TECHNIQUE: 2 views of the abdomen. FINDINGS: There is no improvement in the degree of small bowel obstruction with dilated air and fluid-filled loops of small intestine in the upper abdomen. There is no distal gas. No visible extraluminal gas is identified. No free air is seen. Lung bases are clear. Soft tissues are unremarkable. IMPRESSION: Persistent small bowel obstruction. Assessment/Plan Assessment/Plan 47 M admitted with sig diverticulitis with abscess, not amenable to IR drainage, on iv abx with persistent sbo and no bowel function, agreeable to NG tube placement if he is sedated Cont conservative management Bowel rest, IVF IV Rocephin/Flagyl OOB, ambulate May require lap washout, possible colectomy/colostomy if he does not resolve or improve this admission Will d/w Dr. Jerry Core Measures Venous Thromboembolism VTE Risk Factors Acute Medical Illness No Mechanical VTE Prophylaxis d/t N/A MechProphylax Ordered No VTE Pharm Prophylaxis d/t Surgical Contraindication
[2017-09-05 15:15] VITALS: BP 116/74
[2017-09-05 23:13] VITALS: BP 141/81
[2017-09-06 07:21] VITALS: BP 124/68
--- NOTE | 2017-09-06 07:46 | PN- General Surgery ---
See Addendum Subjective Subjective: Feeling much better today. Positive flatus this morning. Feels his abdominal is less distended and the distention that he does have is lower in the abdomen. No nausea no vomiting. States he walks around a lot yesterday and is feeling well. No other complaints Objective Vital Signs and I&Os Vital Signs Date Time Temp Pulse Resp B/P B/P Pulse O2 O2 Flow FiO2 Mean Ox Delivery Rate 09/06 0721 98.4 83 18 124/68 94 09/05 2313 98.5 79 18 141/81 97 Room Air 09/05 1515 99.1 83 18 116/74 96 Room Air Intake & Output 09/06 0809/06 0000 09/05 1600 09/05 0809/05 0000 09/04 1600 Intake Total 1000 1000 713 154 1108 Output Total 900 Balance 1000 1000 900 395 190 Intake, IV 1000 1000 918 656 9885 Intake, Oral 0 0 30 0 90 Number 0 0 Bowel Movements Output, Urine 900 Patient 165 lb Weight Physical Exam: Well-developed well-nourished no apparent distress. HEENT: Atraumatic, extraocular motion intact Neck: Supple, no lymphadenopathy Respiratory: No respiratory distress Abdomen: Moderate distention, positive tympany throughout mid to lower abdomen. Mild tenderness left lower quadrant and suprapubic region. Faint active bowel sounds Extremities: No edema, no calf pain Neuro: Alert and oriented x3 Psych: Mood affect normal, normal memory normal judgment. Skin: Warm and dry, no rash on exposed skin Results Last 48 Hours of Labs: Laboratory Tests 09/04 09/04 0926 0827 Chemistry Sodium (137 - 145 mmol/L) 144 Potassium (3.5 - 5.1 mmol/L) 3.5 Chloride (98 - 107 mmol/L) 103 Carbon Dioxide (22 - 30 mmol/L) 29 Anion Gap (5 - 16) 12 BUN (9 - 20 mg/dL) 10 Creatinine (0.7 - 1.2 mg/dL) 0.9 Estimated GFR (>60 ml/min) > 60 BUN/Creatinine Ratio (7 - 25 %) 11.1 Hematology CBC w Diff NO MAN DIFF REQ WBC (4.8 - 10.8 /CUMM) 8.5 RBC (4.70 - 6.10 /CUMM) 3.51 L Hgb (14.0 - 18.0 G/DL) 11.3 L Hct (42 - 52 %) 33.2 L MCV (80.0 - 94.0 FL) 94.6 H MCH (27.0 - 31.0 PG) 32.3 H MCHC (33.0 - 37.0 G/DL) 34.1 RDW (11.5 - 14.5 %) 13.4 Plt Count (130 - 400 /CUMM) 255 MPV (7.4 - 10.4 FL) 7.5 Gran % (42.2 - 75.2 %) 63.2 Lymphocytes % (20.5 - 51.1 %) 15.6 L Monocytes % (1.7 - 9.3 %) 20.5 H Eosinophils % (0 - 5 %) 0.5 Basophils % (0.0 - 2.0 %) 0.2 Absolute Granulocytes (1.4 - 6.5 /CUMM) 5.4 Absolute Lymphocytes (1.2 - 3.4 /CUMM) 1.3 Absolute Monocytes (0.10 - 0.60 /CUMM) 1.7 H Absolute Eosinophils (0.0 - 0.7 /CUMM) 0 Absolute Basophils (0.0 - 0.2 /CUMM) 0 Assessment/Plan Assessment/Plan 47 M admitted with sig diverticulitis with abscess, not amenable to IR drainage, on iv abx with persistent sbo, improving with medical management Cont conservative management Possible advance to clear his for lunch, will discuss with Dr. Jerry Monitor return of bowel function IVF IV Rocephin/Flagyl OOB, ambulate Follow labs this morning, white blood cell count trending down Need for urgent Surgery this admission looking less likely Core Measures Venous Thromboembolism VTE Risk Factors Acute Medical Illness No Mechanical VTE Prophylaxis d/t N/A MechProphylax Ordered No VTE Pharm Prophylaxis d/t Surgical Contraindication
[2017-09-06 11:19] VITALS: BP 132/74
[2017-09-06 14:09] VITALS: BP 140/88
[2017-09-06 14:53] LABS: ABSOLUTE BASOPHIL COUNT 0 /CUMM (0.0-0.2); ABSOLUTE EOSINOPHIL COUNT 0.1 /CUMM (0.0-0.7); ABSOLUTE GRANULOCYTE CT 7.5 /CUMM (1.4-6.5); ABSOLUTE LYMPH COUNT 1.7 /CUMM (1.2-3.4); ABSOLUTE MONOCYTE COUNT 1.3 /CUMM (0.10-0.60); BASOPHIL % 0.2 % (0.0-2.0); EOSINOPHIL % 0.8 % (0-5); GRANULOCYTE % 71.3 % (42.2-75.2); MEAN CORPUSCULAR HGB 31.2 PG (27.0-31.0); MEAN CORPUSCULAR HGB CONC 32.9 G/DL (33.0-37.0); MEAN CORPUSCULAR VOLUME 94.7 FL (80.0-94.0); MEAN PLATELET VOLUME 7.2 FL (7.4-10.4); PLATELET COUNT 307 /CUMM (130-400); RED BLOOD CELL CT 3.38 /CUMM (4.70-6.10); WHITE BLOOD CELL COUNT 10.5 /CUMM (4.8-10.8)
[2017-09-06 22:08] VITALS: BP 130/80
[2017-09-07 06:30] VITALS: BP 142/84
--- NOTE | 2017-09-07 10:24 | PN- General Surgery ---
See Addendum Subjective Subjective: Patient reports a lack of appetite with the clear liquids. He reports taking it slow and is mostly drinking water. He continues to pass flatus, four times this morning. Denies nausea, vomiting. Pain is controlled. Objective Vital Signs and I&Os Vital Signs Date Time Temp Pulse Resp B/P B/P Pulse O2 O2 Flow FiO2 Mean Ox Delivery Rate 09/07 1349 99.6 72 20 152/90 94 09/07 0630 98.4 83 20 142/84 92 09/06 2208 99.0 74 18 130/80 95 Room Air Intake & Output 09/07 1600 09/07 0800 09/07 0000 09/06 1600 09/06 0800 09/06 0000 Intake Total 870 4623 532 6123 1000 Output Total Balance 870 0586 292 3152 1000 Intake, IV 1000 065 135 1979 Intake, Oral 620 250 450 450 0 Intake, 250 TPN/PPN Number 0 Bowel Movements Patient 165 lb Weight Physical Exam: Gen - resting comfortably awake an alert in NAD Cardiac - S1S2 noted Lungs - CTAB Abd - softly distended, hypoactive bs, nontender Ext - no edema or calf tenderness Current Medications: Current Medications Sig/Jhonatan Start time Last Medication Dose Route Stop Time Status Admin Acetaminophen 650 MG Q4P PRN 09/07 0945 AC 09/07 PO 1000 Ceftriaxone Sodium 2,000 MG Q24H 09/04 0130 AC 09/07 IV 0043 Dextrose/Sodium 1,000 ML .Q8H 09/03 0130 AC 09/07 Chloride IV 1547 Diphenhydramine HCl 50 MG .STK-MED ONE 09/07 0042 DC IM 09/07 0043 Diphenhydramine HCl 25 MG Q6P PRN 09/04 0230 AC 09/07 IV 0042 Heparin Sodium 5,000 UNIT Q8 09/03 1400 AC 09/05 (Porcine) SC 2125 Ketorolac 15 MG Q6P PRN 09/05 2045 AC 09/05 Tromethamine IV 2205 Metronidazole 500 MG Q8H 09/03 1000 AC 09/07 N/A 1 UNIT IV 1707 Morphine Sulfate 2 MG Q3P PRN 09/03 0145 AC 09/07 IV 1723 Morphine Sulfate 4 MG Q3P PRN 09/03 0145 AC 09/07 IV 1211 Ondansetron HCl 4 MG Q6P PRN 09/03 0130 AC IV Pantoprazole Sodium 40 MG DAILY 09/03 1113 AC 09/07 IV 0834 Potassium Chloride 40 MEQ BID 09/07 2200 AC PO Potassium Chloride 40 MEQ ONCE ONE 09/07 0730 DC 09/07 PO 09/07 0731 0835 Results Last 48 Hours of Labs: Laboratory Tests 09/07 09/06 0653 1431 Chemistry Sodium (137 - 145 mmol/L) 137 140 Potassium (3.5 - 5.1 mmol/L) 2.8 *L 3.3 L Chloride (98 - 107 mmol/L) 101 102 Carbon Dioxide (22 - 30 mmol/L) 28 27 Anion Gap (5 - 16) 9 11 BUN (9 - 20 mg/dL) 5 L 6 L Creatinine (0.7 - 1.2 mg/dL) 0.7 0.7 Estimated GFR (>60 ml/min) > 60 > 60 BUN/Creatinine Ratio (7 - 25 %) 7.1 8.6 Hematology CBC w Diff NO MAN DIFF REQ WBC (4.8 - 10.8 /CUMM) 10.5 RBC (4.70 - 6.10 /CUMM) 3.38 L Hgb (14.0 - 18.0 G/DL) 10.5 L Hct (42 - 52 %) 32.0 L MCV (80.0 - 94.0 FL) 94.7 H MCH (27.0 - 31.0 PG) 31.2 H MCHC (33.0 - 37.0 G/DL) 32.9 L RDW (11.5 - 14.5 %) 13.0 Plt Count (130 - 400 /CUMM) 307 MPV (7.4 - 10.4 FL) 7.2 L Gran % (42.2 - 75.2 %) 71.3 Lymphocytes % (20.5 - 51.1 %) 15.8 L Monocytes % (1.7 - 9.3 %) 11.9 H Eosinophils % (0 - 5 %) 0.8 Basophils % (0.0 - 2.0 %) 0.2 Absolute Granulocytes (1.4 - 6.5 /CUMM) 7.5 H Absolute Lymphocytes (1.2 - 3.4 /CUMM) 1.7 Absolute Monocytes (0.10 - 0.60 /CUMM) 1.3 H Absolute Eosinophils (0.0 - 0.7 /CUMM) 0.1 Absolute Basophils (0.0 - 0.2 /CUMM) 0 Assessment/Plan Assessment/Plan 47 M admitted with sig diverticulitis with abscess, not amenable to IR drainage, on iv abx with persistent sbo with return of flatus and hypokalemia Cont conservative management Cont clears, IVF IV Rocephin/Flagyl Replete with oral K 40 bid OOB, ambulate Repeat labs in am D/w Dr. Rodrigues Core Measures Venous Thromboembolism VTE Risk Factors Acute Medical Illness No Mechanical VTE Prophylaxis d/t N/A MechProphylax Ordered No VTE Pharm Prophylaxis d/t Surgical Contraindication
[2017-09-07 13:49] VITALS: BP 152/90
[2017-09-07 21:45] VITALS: BP 132/78
[2017-09-08 05:46] VITALS: BP 142/78
[2017-09-08 08:55] LABS: ABSOLUTE BASOPHIL COUNT 0.1 /CUMM (0.0-0.2); ABSOLUTE EOSINOPHIL COUNT 0.1 /CUMM (0.0-0.7); ABSOLUTE GRANULOCYTE CT 11.5 /CUMM (1.4-6.5); ABSOLUTE LYMPH COUNT 1.2 /CUMM (1.2-3.4); ABSOLUTE MONOCYTE COUNT 1.7 /CUMM (0.10-0.60); BASOPHIL % 0.3 % (0.0-2.0); EOSINOPHIL % 0.6 % (0-5); GRANULOCYTE % 79.1 % (42.2-75.2); HEMATOCRIT 30.9 % (42-52); MEAN CORPUSCULAR HGB CONC 34.1 G/DL (33.0-37.0); MEAN CORPUSCULAR VOLUME 93.9 FL (80.0-94.0); MEAN PLATELET VOLUME 7.6 FL (7.4-10.4); PLATELET COUNT 302 /CUMM (130-400); RBC DISTRIBUTION WIDTH 13.1 % (11.5-14.5); RED BLOOD CELL CT 3.29 /CUMM (4.70-6.10); WHITE BLOOD CELL COUNT 14.5 /CUMM (4.8-10.8)
--- NOTE | 2017-09-08 12:32 | PN- General Surgery ---
See Addendum Subjective Subjective: Pt walking around room, very comfortable. denies pain, nausea or fevers. having bowel movements, voiding. ambulating. would like his diet advanced Objective Vital Signs and I&Os Vital Signs Date Time Temp Pulse Resp B/P B/P Pulse O2 O2 Flow FiO2 Mean Ox Delivery Rate 09/08 0546 98.8 95 20 142/78 94 09/07 2145 98.7 92 20 132/78 95 Room Air 09/07 1349 99.6 72 20 152/90 94 Intake & Output 09/08 1600 09/08 0800 09/08 0000 09/07 1600 09/07 0800 09/07 0000 Intake Total 1250 812 141 3363 825 Output Total 850 Balance 400 285 874 4431 825 Intake, IV 4424 371 2607 375 Intake, Oral 250 550 620 250 450 Intake, 250 TPN/PPN Output, Urine 850 Physical Exam: gen- nad resp- clear cardio-rrr abd- nd, +bs, soft, nt Assessment/Plan Assessment/Plan 47 M admitted with sig diverticulitis with abscess, not amenable to IR drainage, on iv abx. Resolved sbo as bowel function has returned Cont conservative management with ABX, will transition to PO ABX advance diet to full liquids Replete with oral K 40 bid OOB, ambulate repleating K with Kpack D/w Dr. Rodrigues Core Measures Venous Thromboembolism VTE Risk Factors Acute Medical Illness No Mechanical VTE Prophylaxis d/t N/A MechProphylax Ordered No VTE Pharm Prophylaxis d/t Surgical Contraindication
[2017-09-08 13:57] VITALS: BP 130/74
[2017-09-08 22:48] VITALS: BP 148/89
[2017-09-09 06:30] VITALS: BP 146/96
--- NOTE | 2017-09-09 07:41 | PN- General Surgery ---
See Addendum Subjective Subjective: No events overnight. Patient denies any current abdominal pain. Denies any nausea, vomiting, fevers, chills, chest pain, or SOB. Voiding freely. He is tolerating his full liquid diet, passing flatus, and had two bowel movements yesterday. Ambulating the hallway. Objective Vital Signs and I&Os Vital Signs Date Time Temp Pulse Resp B/P B/P Pulse O2 O2 Flow FiO2 Mean Ox Delivery Rate 09/09 0630 98.2 91 20 146/96 94 09/08 2248 98.1 86 20 148/89 99 / 1357 98.6 88 18 130/74 98 Intake & Output 09/09 0809/09 0000 09/08 1600 09/08 0800 09/08 0000 09/07 1600 Intake Total 2716 382 3266 1250 925 870 Output Total 850 Balance 1498 396 7237 400 925 870 Intake, IV 1000 239 246 9179 375 Intake, Oral 240 600 500 250 550 620 Intake, 250 TPN/PPN Number 0 1 Bowel Movements Output, Urine 850 Physical Exam: Afebrile, VSS. General: Sitting in bed in NAD. Cardiac: RRR Pulmonary: CTAB Abdominal: + BS, soft, minimall distended, non tender to palpation. No rebound or guarding. Assessment/Plan Assessment/Plan 47 M admitted with sig diverticulitis with abscess, not amenable to IR drainage, on iv abx. Tolerating full liquids with return of bowel function. - Cont conservative management with ABX, will transition to PO ABX - Advance diet to low fiber diet - OOB, ambulate - Follow up am labs - Plan for possible d/c today if able to tolerate diet - will d/w Dr. Jerry Core Measures Venous Thromboembolism VTE Risk Factors Acute Medical Illness No Mechanical VTE Prophylaxis d/t N/A MechProphylax Ordered No VTE Pharm Prophylaxis d/t Surgical Contraindication
--- NOTE | 2017-09-09 08:00 | Patient Discharge Instructions ---
Discharge Instructions General Discharge Information You were seen/treated for: SIGMOID DIVERTICULITIS WITH ABSCESS Watch for these problems: FEVER > 101.1, CHILLS, CHEST PAIN, SHORTNESS OF BREATH, NAUSEA, VOMITING, OR WORSENING ABDOMINAL PAIN. Special Instructions: Take both antibiotics for 1 week, as directed. use oral Nystatin for Thrush Diet Recommended Diet: Low Residue Activity Full Activity/No Limits: Yes Acute Coronary Syndrome Inclusion Criteria At DC or during hospital stay patient has or had the following: ACS DIAGNOSIS No Discharge Core Measures Meds if any: Prescribed or Continued at Discharge Meds if any: NOT Prescribed or Continued at Discharge Congestive Heart Failure Inclusion Criteria At DC or during hospital stay patient has or had the following: CHF DIAGNOSIS No Discharge Core Measures Meds if any: Prescribed or Continued at Discharge Meds if any: NOT Prescribed or Continued at Discharge Cerebrovascular accident Inclusion Criteria At DC or during hospital stay patient has or had the following: CVA/TIA Diagnosis No Discharge Core Measures Meds if any: Prescribed or Continued at Discharge Meds if any: NOT Prescribed or Continued at Discharge Venous thromboembolism Inclusion Criteria VTE Diagnosis No VTE Type NONE VTE Confirmed by (Test) NONE Discharge Core Measures - Per Current guidelines, there needs to be overlap - treatment for the first 5 days of Warfarin therapy. - If discharged on Warfarin prior to 5 days of - overlap therapy, the patient will need to be - assessed for post discharge needs including - *Post discharge parental anticoagulation - *Warfarin and/or parental anticoagulation education - *Follow up date to check INR post discharge At least 5 days overlap therapy as Inpatient No Meds if any: Prescribed or Continued at Discharge Note: Overlap Therapy is Warfarin and Anticoagulant Meds if any: NOT Prescribed or Continued at Discharge
[2017-09-09 08:15] LABS: ABSOLUTE BASOPHIL COUNT 0 /CUMM (0.0-0.2); ABSOLUTE EOSINOPHIL COUNT 0.2 /CUMM (0.0-0.7); ABSOLUTE GRANULOCYTE CT 9.5 /CUMM (1.4-6.5); ABSOLUTE LYMPH COUNT 1.8 /CUMM (1.2-3.4); ABSOLUTE MONOCYTE COUNT 1.5 /CUMM (0.10-0.60); BASOPHIL % 0.2 % (0.0-2.0); EOSINOPHIL % 1.3 % (0-5); HEMATOCRIT 32.2 % (42-52); MEAN CORPUSCULAR HGB 31.9 PG (27.0-31.0); MEAN CORPUSCULAR VOLUME 93.8 FL (80.0-94.0); MEAN PLATELET VOLUME 7.5 FL (7.4-10.4); PLATELET COUNT 364 /CUMM (130-400); RBC DISTRIBUTION WIDTH 13.6 % (11.5-14.5); RED BLOOD CELL CT 3.44 /CUMM (4.70-6.10)
--- NOTE | 2017-09-09 13:04 | Surgical Discharge Summary ---
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 Spouse Services at Home: None What is Your Primary Language? Icelandic ETOH Use: occasional use Review of Systems: SEE PREOP [facility] Hospital Course Course Attending Physician: Jens Jerry MD Primary Care Physician: Puma BARAJAS,Peña Jean Hospital Course: Patient was admitted to surgical service and kept nothing by mouth for treatment of diverticulitis with abscess. He had a bowel obstruction related to the small bowel adherence to the abscess cavity. Over the course of 3-4 days his leukocytosis improved and he began to pass flatus. Diet was reinstituted without difficulty. At time of discharge she was tolerating a regular diet and was pain free. Plan will be for him to return to the office as an outpatient at which time follow-up CT scan can be arranged. Interval sigmoid colectomy will be required in 6-8 weeks. Allergies: Coded Allergies: NO KNOWN ALLERGIES (09/22/14) Disposition Summary Disposition Principal Diagnosis: DIVERTICULITIS WITH ABSCESS Additional Diagnosis: INTESTINAL OBSTRUCTION Discharge Disposition: home or self care Discharge Instructions General Discharge Information Code Status: Full Code Patient's Diet: REGULAR LOW FIBER Patient's Activity: SELF LIMITED Follow-Up Instructions/Appts: 2 WEEKS Medications at Discharge Discharge Medications: Start taking the following new medications: Metronidazole (Flagyl) 500 MG TABLET 1 Tablet ORAL TWICE DAILY Qty = 14 No Refills Comments: last given 08/12/17 @ 1030 Ciprofloxacin HCl (Cipro) 500 MG TABLET 1 Tablet ORAL TWICE DAILY Qty = 14 No Refills Comments: not given in hospital Nystatin (Nystatin) 100,000 UNIT/ML ORAL.SUSP 5 Milliliters ORAL 4 TIMES A DAY Qty = 200 No Refills Comments: last given 09/09/17 @ 1430
[2017-09-09] MEDS ORDERED: FLAGYL500 MG PO (13:15)
[2017-09-09] MEDS ORDERED: CIPRO500 M1 PO (13:15)
[2017-09-09] MEDS ORDERED: NYSTATIN100000 UNI PO (13:15)
[2017-09-09 14:23] VITALS: BP 140/80
== END 2017-09-09 15:32 | DRG 392 ==
LOC: DELPENDDIS → ERH 20:04 → ERHI 09-03 01:00 → 2NB 09-03 01:00 → ENRESERV 09-03 02:10 → 2NB 09-03 02:32 → ENPENDDIS 09-03 09:48 → 2NB 09-06 10:42 → ENPENDDIS 09-09 13:37 → 2NB 09-09 15:32
PROVIDERS: Emergency Medicine; Nurse Practitioner; Physician Assistant Surgical
DX: K57.20 Diverticulitis of large intestine with perforation and abscess without bleeding (principal); D72.829 Elevated white blood cell count, unspecified
CPT/HCPCS: 2NBSP; 36415; 36592; 74021; 74177; 81001; 82436; 96374; 96375; 96376; J0696; J1200; J1644; J1885; J2405; J7042